=== PATIENT | female | born 1995 | race Caucasian/White ===

== ENCOUNTER 2017-12-21 18:26 | Emergency (ER) | payer OTHER ==
[2017-12-21 18:45] VITALS: PULSE 89; TEMP 98.7; BMI 24.2
--- NOTE | 2017-12-21 19:29 | PDOC ---
History of Present Illness - General History Source: Patient Exam Limitations: No Limitations - History of Present Illness Initial Comments: 12/21/17 20:22 Patient is a 22 year old female, 27 weeks , with no significant past medical history who presents to the ED with complaints of left sided chest pain that began this afternoon while at work. Patient reports feeling fine this morning, but began to experience left sided chest pain 1 hour after her shift began. She reports left sided chest pain is a sharp non radiating pain that is increased with deep inspirations and walking. Patient reports Denies nausea, vomiting. Denies fevers, chills. Denies coughing. Denies constipation, diarrhea, dysuria, hematuria. Denies contact with sick individuals , out of state travel. Denies any other symptoms. Allergies: None Social history: No smoking. No alcohol. No illicit drugs. Surgical history: None PMD: Not on staff <James Kim - Last Filed: 12/21/17 20:22> <Marya Dejesus - Last Filed: 12/22/17 01:29> - General Chief Complaint: Chest Pain Stated Complaint: CHEST PAIN Time Seen by Provider: 12/21/17 19:18 Past History <James Kim - Last Filed: 12/21/17 20:22> - Past Medical History COPD: No Other medical history: denies - Suicide/Smoking/Psychosocial Hx Smoking History: Never smoked Have you smoked in the past 12 months: No Information on smoking cessation initiated: No Hx Alcohol Use: No Drug/Substance Use Hx: No Substance Use Type: None <Marya Dejesus - Last Filed: 12/22/17 01:29> - Past Medical History Allergies/Adverse Reactions: Allergies Allergy/AdvReac Type Severity Reaction Status Date / Time No Known Allergies Allergy Verified 12/21/17 20:05 Home Medications: Ambulatory Orders Vit 93/Iron Fum/Folic [ Formula Tablet] 1 each PO DAILY Review of Systems - Review of Systems Able to Perform ROS?: Yes Comments:: 12/21/17 20:22 GENERAL/CONSTITUTIONAL: No fever or chills. No weakness. HEAD, EYES, EARS, NOSE AND THROAT: No change in vision. No ear pain or discharge. No sore throat. CARDIOVASCULAR: +Left sided chest pain. No shortness of breath. RESPIRATORY: No cough, wheezing, or hemoptysis. GASTROINTESTINAL: No nausea, vomiting, diarrhea or constipation. GENITOURINARY: No dysuria, frequency, or change in urination. MUSCULOSKELETAL: No joint or muscle swelling or pain. No neck or back pain. SKIN: No rash NEUROLOGIC: No headache, vertigo, loss of consciousness, or change in strength/ sensation. ENDOCRINE: No increased thirst. No abnormal weight change. HEMATOLOGIC/LYMPHATIC: No anemia, easy bleeding, or history of blood clots. ALLERGIC/IMMUNOLOGIC: No hives or skin allergy. All Other Systems: Reviewed and Negative <James Kim - Last Filed: 12/21/17 20:22> *Physical Exam - Vital Signs Last Vital Signs Temp Pulse Resp BP Pulse Ox 98.7 F 89 20 116/76 98 12/21/17 18:43 12/21/17 18:43 12/21/17 18:43 12/21/17 18:43 12/21/17 18:55 - Physical Exam Comments: 12/21/17 20:22 GENERAL: Awake, alert, and fully oriented, in no acute distress HEAD: No signs of trauma EYES: PERRLA, EOMI, sclera anicteric, conjunctiva clear ENT: Auricles normal inspection, hearing grossly normal, nares patent, oropharynx clear without exudates. Moist mucosa NECK: Normal ROM, supple, no lymphadenopathy, JVD, or masses LUNGS: Breath sounds equal, clear to auscultation bilaterally. No wheezes, and no crackles HEART: Regular rate and rhythm, normal S1 and S2, no murmurs, rubs or gallops ABDOMEN: Soft, nontender, normoactive bowel sounds. No guarding, no rebound. No masses EXTREMITIES: Normal range of motion, no edema. No clubbing or cyanosis. No cords, erythema, or tenderness NEUROLOGICAL: Cranial nerves II through XII grossly intact. Normal speech, normal gait SKIN: Warm, Dry, normal turgor, no rashes or lesions noted. <James Kim - Last Filed: 12/21/17 20:22> - Vital Signs Last Vital Signs Temp Pulse Resp BP Pulse Ox 98.7 F 89 20 116/76 98 12/21/17 18:43 12/21/17 18:43 12/21/17 18:43 12/21/17 18:43 12/21/17 18:55 <Marya Dejesus - Last Filed: 12/22/17 01:29> ED Treatment Course - LABORATORY CBC & Chemistry Diagram: 12/21/17 20:08 12/21/17 20:08 - Medications Given in the ED: ED Medications Discontinued Medications Generic Name Dose Route Start Last Admin Trade Name Kalie PRN Reason Stop Dose Admin Al Hydroxide/Mg Hydroxide 30 ml 12/21/17 20:03 12/21/17 20:18 Mylanta Oral Suspension - PO 12/21/17 20:04 30 ml ONCE ONE Administration Sodium Chloride 1,000 ml 12/21/17 20:02 12/21/17 20:18 Normal Saline - IV 12/21/17 20:03 1,000 ml ONCE ONE Administration <James Kim - Last Filed: 12/21/17 20:22> - LABORATORY CBC & Chemistry Diagram: 12/21/17 20:08 12/22/17 00:39 <Marya Dejesus - Last Filed: 12/22/17 01:29> Medical Decision Making - Medical Decision Making 12/21/17 21:04 Pt has hypokalemia. States that today all she ate was a burger at [employer] where she works. Pt has been feeling chest discomfort and she appears tired and weak. She is being hydrated. I will treat with magnesium sulfate IV and potassium oral and IV. <Marya Dejesus - Last Filed: 12/22/17 01:29> *DC/Admit/Observation/Transfer - Attestations Scribe Attestion: 12/21/17 20:23 Documentation prepared by James Kim, acting as medical coding specialist for Marya Dejesus MD/DO. <James Kim - Last Filed: 12/21/17 20:22> - Discharge Dispostion Admit: No <Marya Dejesus - Last Filed: 12/22/17 01:29> Diagnosis at time of Disposition: Dehydration, Electrolyte abnormality - Discharge Dispostion Disposition: HOME Condition at time of disposition: Stable - Patient Instructions Printed Discharge Instructions: DI for Atypical Chest Pain
[2017-12-21] MEDS ORDERED: SODIUM CHLORIDE 0.9% 500 ML INFUS.BAG IV ONE (20:02)
[2017-12-21] MEDS ORDERED: MAG HYDROX/AL HYDROX/SIMETH 30 ML UNIT-DOSE CUP PO ONE (20:03)
[2017-12-21 20:17] LABS: BASO % 0.1 % (0-2.0); EOS % 0.4 % (0-4.5); HEMATOCRIT 29.2 % (32.4-45.2); HEMOGLOBIN 9.6 GM/dL (10.7-15.3); LYMPH % 12.8 % (8-40); MCH 25.3 pg (25.7-33.7); MCHC 32.8 g/dl (32.0-36.0); MEAN CELL VOLUME 77.4 fl (80-96); MEAN PLT VOLUME 7.4 fl (7.5-11.1); MONO % 8.5 % (3.8-10.2); NEUT % 78.2 % (42.8-82.8); PLATELET COUNT 272 K/MM3 (134-434); RBC 3.77 M/mm3 (3.60-5.2); RDW 14.2 % (11.6-15.6); WHITE BLOOD COUNT 9.7 K/mm3 (4.0-10.0)
[2017-12-21] MEDS ORDERED: ACETAMINOPHEN 500 MG TABLET (FP) PO ONE (20:22)
[2017-12-21 20:39] LABS: PROTHROMBIN TIME (PATIENT) 11.3 SEC (9.98-11.88)
[2017-12-21] MEDS ORDERED: ACETAMINOPHEN 325 MG TABLET (FP) ONE (20:41)
[2017-12-21 20:49] LABS: ALBUMIN 2.8 g/dl (3.4-5.0); ANION GAP 10 (8-16); BILIRUBIN,TOTAL 0.2 mg/dL (0.2-1.0); BLOOD UREA NITROGEN 14 mg/dL (7-18); CALCIUM 8.7 mg/dL (8.5-10.1); CHLORIDE 101 mmol/L (98-107); CO2 25 mmol/L (21-32); CREATININE 0.7 mg/dL (0.55-1.02); GLUCOSE,RANDOM 80 mg/dL (74-106); SGOT/AST 31 U/L (15-37); SGPT/ALT 45 U/L (12-78); SODIUM 136 mmol/L (136-145); TOT PROT 7.9 g/dl (6.4-8.2)
[2017-12-21 20:51] LABS: URINE APPEARANCE CLEAR; URINE BILIRUBIN NEGATIVE (NEGATIVE); URINE BLOOD NEGATIVE (NEGATIVE); URINE COLOR STRAW; URINE GLUCOSE (UA) NEGATIVE (NEGATIVE); URINE KETONE NEGATIVE (NEGATIVE); URINE NITRITE NEGATIVE (NEGATIVE); URINE PROTEIN NEGATIVE (NEGATIVE); URINE UROBILINOGEN NEGATIVE mg/dL (0.2-1.0)
[2017-12-21 20:52] LABS: ALK PHOS 121 U/L (45-117)
[2017-12-21 21:00] LABS: URINE LEUK ESTERASE 1+ (NEGATIVE)
[2017-12-21 21:01] LABS: EPI CELLS RARE /HPF (FEW)
[2017-12-21 21:03] LABS: POTASSIUM 2.9 mmol/L (3.5-5.1)
[2017-12-21] MEDS ORDERED: MAGNESIUM SULF 50% (8.12 MEQ/2 ML-1 GM VIAL) IVPB ONE (21:03)
[2017-12-21] MEDS ORDERED: POTASSIUM CHLORIDE TABS 20 MEQ TABLET.ER (FP) PO ONE ×2 (21:03→21:07)
[2017-12-21] MEDS ORDERED: KCL 10 MEQ IVPB 10 MEQ/100 ML INFUS.BAG IVPB SCH (21:15)
[2017-12-21 21:26] VITALS: BP 106/65
[2017-12-21] MEDS ORDERED: KCL 10 MEQ IVPB 10 MEQ/100 ML INFUS.BAG IVPB ONE (22:21)
[2017-12-22 01:11] LABS: ANION GAP 7 (8-16); BLOOD UREA NITROGEN 12 mg/dL (7-18); CALCIUM 7.5 mg/dL (8.5-10.1); CHLORIDE 107 mmol/L (98-107); CO2 26 mmol/L (21-32); CREATININE 0.6 mg/dL (0.55-1.02); GLUCOSE,RANDOM 95 mg/dL (74-106); POTASSIUM 3.1 mmol/L (3.5-5.1); SODIUM 140 mmol/L (136-145)
--- NOTE | 2017-12-22 11:39 | EKG ---
Test Reason : Blood Pressure : / mmHG Vent. Rate : 084 BPM Atrial Rate : 084 BPM P-R Int : 120 ms QRS Dur : 088 ms QT Int : 374 ms P-R-T Axes : 062 026 002 degrees QTc Int : 441 ms NORMAL SINUS RHYTHM NONSPECIFIC ST ABNORMALITY ABNORMAL ECG WHEN COMPARED WITH ECG OF 21-DEC-2017 19:17, NO SIGNIFICANT CHANGE WAS FOUND Confirmed by MD ELIZABETH, KAYLYNN ([id number]) on 12/22/2017 11:39:21 AM Referred By: Confirmed By:KAYLYNN JOHNSON MD
--- NOTE | 2017-12-26 11:03 | EKG ---
Test Reason : Blood Pressure : / mmHG Vent. Rate : 082 BPM Atrial Rate : 082 BPM P-R Int : 122 ms QRS Dur : 096 ms QT Int : 362 ms P-R-T Axes : 070 028 012 degrees QTc Int : 422 ms NORMAL SINUS RHYTHM POSSIBLE LEFT ATRIAL ENLARGEMENT RSR' OR QR PATTERN IN V1 SUGGESTS RIGHT VENTRICULAR CONDUCTION DELAY BORDERLINE ECG NO PREVIOUS ECGS AVAILABLE Confirmed by BENJI ANDREA MD ([id number]) on 12/26/2017 11:02:46 AM Referred By: Confirmed By:BENJI ANDREA MD
== END 2017-12-22 01:35 | disposition home or self-care (01) ==
LOC: JER 18:26
PROC: 3E0337Z Introduction of Electrolytic and Water Balance Substance into Peripheral Vein, Percutaneous Approach (ICD-10-PCS; principal; 2017-12-21)
PROC: 3E033GC Introduction of Other Therapeutic Substance into Peripheral Vein, Percutaneous Approach (ICD-10-PCS; 2017-12-21)
DX: O26.892 Other specified pregnancy related conditions, second trimester (principal); E86.0 Dehydration; E87.6 Hypokalemia; Z3A.27 27 weeks gestation of pregnancy
CPT/HCPCS: 36415; 80048; 80053; 81003; 81015; 82550; 84484; 85025; 85610; 86850; 86900; 86901; 93005; 93010; 96365; 96375; 99283-25